=== PATIENT | male | born 1990 | race Caucasian/White ===

== ENCOUNTER 2017-12-03 03:41 | Emergency (ER) | payer BC, OTHER ==
[~2017-12-03] VITALS: Ht 180.3 cm; Wt 65.3 kg
[~2017-12-03 03:41] MED LIST: CYCL-1 PO
[2017-12-03 03:47] VITALS: BP 170/98
[2017-12-03] MEDS ORDERED: HYDR-3965 PO (03:51)
[2017-12-03] MEDS ORDERED: ONDA4TAB9 PO (03:51)
== END 2017-12-03 03:56 | disposition home or self-care (01) ==
LOC: ER 03:41
DX: K08.89 Other specified disorders of teeth and supporting structures (principal); R50.9 Fever, unspecified; F17.200 Nicotine dependence, unspecified, uncomplicated
CPT/HCPCS: 99283

== ENCOUNTER 2021-07-26 18:10 | Emergency (ER) | payer BC ==
[~2021-07-26] VITALS: Ht 180.3 cm; Wt 81.0 kg
[2021-07-26] MEDS ORDERED: gabapentin 400mg capsule PO STA (23:09)
[2021-07-26] MEDS ORDERED: chlordiazePOXIDE 25mg capsule PO ONE (23:10)
[2021-07-26] MEDS ORDERED: GABA-534 PO (23:13)
[2021-07-26] MEDS ORDERED: CHLO25CA10 PO (23:13)
[2021-07-26 23:36] VITALS: BP 125/87
== END 2021-07-26 23:38 | disposition home or self-care (01) ==
LOC: ER 18:10
DX: F10.10 Alcohol abuse, uncomplicated (principal); F17.200 Nicotine dependence, unspecified, uncomplicated; F12.90 Cannabis use, unspecified, uncomplicated; Z79.899 Other long term (current) drug therapy; Y90.9 Presence of alcohol in blood, level not specified
CPT/HCPCS: 99283

== ENCOUNTER 2021-11-02 18:32 | Emergency (ER) | payer BC ==
[~2021-11-02] VITALS: Ht 180.3 cm; Wt 72.7 kg
[~2021-11-02 18:32] MED LIST changes: +CHLO25CA10 PO; +GABA-534 PO
[2021-11-02 18:42] VITALS: BP 133/92
== END 2021-11-02 20:49 | disposition left against medical advice (07) ==
LOC: ER 18:33
DX: F10.10 Alcohol abuse, uncomplicated (principal); Z53.21 Procedure and treatment not carried out due to patient leaving prior to being seen by health care provider

== ENCOUNTER 2024-08-12 20:27 | Emergency (ER) | payer BC, OTHER ==
[~2024-08-12] VITALS: Ht 182.9 cm; Wt 81.8 kg
[~2024-08-12 20:27] MED LIST changes: -GABA-534 PO; +GABA-535 PO
--- NOTE | 2024-08-12 21:12 | RADIOLOGY REPORT ---
CLINICAL INDICATION: KNEE PAIN LEFT TECHNIQUE: DI KNEE, COMP 4 VW MIN Comparison: None FINDINGS/IMPRESSION: : There is no evidence of acute fracture or dislocation. Soft tissues are unremarkable.
--- NOTE | 2024-08-12 22:31 | Physician Documentation ---
History of Present Illness ~ Chief Complaint: Knee Pain Stated Complaint: LEFT LEG PAIN Time Seen by MD: 21:16 Primary Medical Doctor: harmony capellan Source: patient, RN/ HPI Patient is seen today with complaints of pain in his left leg and mostly his left knee stating he is concerned for blood clot because of swelling of the left leg and knee. Patient also admits to being a heavy drinker and wants some labs drawn. Patient states he tried to quit drinking about a week ago and he stopped cold turkey and states he had a seizure home. Patient does admit to history or seizures. Patient states he started drinking again. Patient has no other concern or complaint at this time denies any chest pain or shortness of breath or abdominal pain or nausea, vomiting, diarrhea. Medication Reconciliation Allergies: Coded Allergies: No Known Allergies (Unverified , 07/03/15) Scheduled Chlordiazepoxide Hcl (Librium), 25 MG PO DIRECTED Gabapentin (Gabapentin), 1 CAP PO DIRECTED Scheduled PRN Cyclobenzaprine* (Cyclobenzaprine*), 1 TABLET PO Q8H PRN for muscle spasms Past Medical History Past Medical History: No Pertinent History Past Surgical History: noncontributory Alcohol Use: Abuse Drug Use: marijuana Lives with: Spouse Lives In: Home Review of Systems Constitutional: Denies: chills, fever, weakness Eyes: Denies: pain, blurred vision ENT: Denies: ear pain, nose pain, throat pain, mouth pain Respiratory: Denies: cough, shortness of breath Cardiovascular: Denies: chest pain, palpitations Gastrointestinal: Denies: abdominal pain, nausea, vomiting Genitourinary: Denies: burning, dysuria Male Genitalia: Denies: penile discharge, testicular pain Neurological: Denies: headache, dizziness Musculoskeletal: Denies: pain, swelling Integumentary: Denies: rash, lesions Allergic/Immunologic: Denies: hives, itching Hematologic/Lymphatic: Denies: no symptoms reported Psychiatric: Denies: depression, anxiety Physical Exam Vital Signs: Temperature: 97.5, Heart Rate: 100, Respiratory Rate: 16, BP: 125/, Pulse Oximetry: 98, Weight: 81.820 Oxygen Flow Rate: 0 Physical Exam General: Awake and Alert, no acute distress. HEENT: Conjunctiva pink, Sclera clear, Mucus Membranes moist. Neck: Supple without masses and tenderness. Resp: Unlabored. Lungs clear to auscultation bilaterally. Heart: Regular Rate and rhythm, normal S1 and S2 without murmur, rub or gallop. Musculoskeletal: Patient on exam has no significant swelling of the left leg or right leg and no significant swelling in his left knee. Patient does have decreased range of motion due to pain especially in flexion of the left knee. Patient is neurovascularly intact distally. Motor function and strength are intact distally. Extremities: No cyanosis,clubbing or edema. Skin: Warm and Dry. Progress Results/Orders Results/Orders Orders - YONI MATSON R PAC D-Dimer (08/12/24 23:04) Completed Orders - YONI MATSON R PAC Cbc/Diff (08/12/24 22:30) CMP (08/12/24 22:30) Ketorolac Trometh 30mg/Ml Vial (Toradol (08/12/24 23:47) Vital Signs 08/12/24 20:43 Temp 97.5 Pulse 100 Resp 16 B/P (MAP) 125/91 Pulse Ox 98 O2 Flow Rate 0 Laboratory Tests Test 08/12/24 22:35 08/12/24 23:23 White Blood Count 6.9 Red Blood Count 5.13 Hemoglobin 16.0 Hematocrit 46.1 Mean Corpuscular Volume 89.9 Mean Corpuscular Hemoglobin 31.3 H Mean Corpuscular Hemoglobin Concent 34.8 Red Cell Distribution Width 13.2 Platelet Count 266 Mean Platelet Volume 7.4 Neutrophils (%) (Auto) 47.8 Lymphocytes (%) (Auto) 37.5 Monocytes (%) (Auto) 9.2 Eosinophils (%) (Auto) 4.1 Basophils (%) (Auto) 1.4 H Neutrophils # (Auto) 3.3 Lymphocytes # (Auto) 2.6 Monocytes # (Auto) 0.6 Eosinophils # (Auto) 0.3 Basophils # (Auto) 0.1 CBC Comment D-Dimer Comment Sodium Level 142 Potassium Level 3.6 Chloride Level 105 Carbon Dioxide Level 26.4 Anion Gap 11 Blood Urea Nitrogen 11 Creatinine 1.01 Estimated GFR/1.73 m2 85 BUN/Creatinine Ratio 10.9 Glucose Level 103 Calcium Level 8.5 Total Bilirubin 0.2 Aspartate Amino Transf (AST/SGOT) 30 Alanine Aminotransferase (ALT/SGPT) 39 Alkaline Phosphatase 85 Total Protein 7.2 Albumin 3.9 Globulin 3.3 Albumin/Globulin Ratio 1.2 Chemistry Comments EKG/XRAY/CT/US/VASC/MRI Bone/Soft Tissue X-Ray (Ext.) : Additional Comment X-ray of left knee shows no sign of acute fracture, bones in anatomic alignment, no soft tissue swelling. DIAGNOSTIC RADIOLOGY Patient: YONI COLLINS Medical Record: [id number] [facility] : 1990, Age: 33 Sex: Male Location: ER Patient Status: [facility] ER Service Date/Time: 08/12/242101 Ordering Physician: ALEXANDER MARRERO MD Exam: KNEE, COMP 4 VW MIN CLINICAL INDICATION: KNEE PAIN LEFT TECHNIQUE: DI KNEE, COMP 4 VW MIN Comparison: None FINDINGS/IMPRESSION: : There is no evidence of acute fracture or dislocation. Soft tissues are unremarkable. Electronically Signed by:CEDRIC DEJESUS MD Date & Time: 08/12/242108 Dictated by: CEDRIC DEJESUS MD Dictation date and time: 08/12/242108 Primary Care Provider: NO PRIMARY CARE PROVIDER cc: ALEXANDER MARRERO MD ~ Medical Decision Making Findings Patient is seen today with complaints of pain in his left leg and mostly his left knee stating he is concerned for blood clot because of swelling of the left leg and knee. Patient also admits to being a heavy drinker and wants some labs drawn. Patient states he tried to quit drinking about a week ago and he stopped cold turkey and states he had a seizure home. Patient does admit to history or seizures. Patient states he started drinking again. Patient has no other concern or complaint at this time denies any chest pain or shortness of breath or abdominal pain or nausea, vomiting, diarrhea. I did draw labs due to patient's extensive and heavy drinking history and his labs returned unremarkable. X-ray of the left knee was unremarkable. Patient will follow up with primary care regarding alcohol cessation. Strongly advise patient to never discontinue drinking of alcohol abruptly. Prescription of the Librium taper sent to patient pharmacy and patient will use as indicated and prescribed. Return to ED with any worsening, concerning or changing symptoms. Departure Disposition: HOME / SELF CARE / HOMELESS Impression: Primary Impression: Alcohol abuse Additional Impression: Knee pain Qualified Codes: M25.562 - Pain in left knee Condition: Stable Discharge Instructions: Acute Knee Pain, Adult Additional Instructions: I did draw labs due to patient's extensive and heavy drinking history and his labs returned unremarkable. X-ray of the left knee was unremarkable. Patient will follow up with primary care regarding alcohol cessation. Strongly advise patient to never discontinue drinking of alcohol abruptly. Prescription of the Librium taper sent to patient pharmacy and patient will use as indicated and prescribed. Return to ED with any worsening, concerning or changing symptoms. Referrals: NO PRIMARY CARE PROVIDER (PCP) Prescriptions Chlordiazepoxide Hcl (Librium) 25 Mg Capsule 2 CAP PO Q4H PRN for anxiety for 1 Day, #24 CAP 0 Refills Prov: YONI MATSON PAC 08/12/24 Signature Scribe Signature: no scribe Attestation: no scribe YONI MATSON PAC Aug 12, 2024 22:31
[2024-08-12 23:05] LABS: MEAN PLATELET VOLUME 7.4 FL (7.4-10.4); RED CELL DISTRIBUTION WIDTH 13.2 % (11.5-14.5)
[2024-08-12 23:22] LABS: CREATININE 1.01 MG/DL (0.60-1.10); TOTAL CARBON DIOXIDE 26.4 MMOL/L (24-32); eCRCL 113 ML/MIN; eGFR 85 ML/MIN
[2024-08-12] MEDS ORDERED: CHLO25CA10 PO (23:59)
[2024-08-13 00:11] VITALS: BP 128/88; PULSE 78; TEMP 97.8; O2SAT 99
[2024-08-13] MEDS: ketorolac trometh 30MG/ML vial 30 MG/ML VIAL IM STA (00:16)
[2024-08-13 00:18] VITALS: RESP 16
== END 2024-08-13 00:19 | disposition home or self-care (01) ==
LOC: ER 20:27
DX: M25.562 Pain in left knee (principal); F10.10 Alcohol abuse, uncomplicated; Y90.9 Presence of alcohol in blood, level not specified
CPT/HCPCS: 36415; 73564; 80053; 85025; 85379; 96372; 99284; J1885

== ENCOUNTER 2025-01-02 10:45 | Emergency (ER) | payer OTHER ==
[~2025-01-02] VITALS: Ht 182.9 cm; Wt 83.9 kg
--- NOTE | 2025-01-02 11:35 | RADIOLOGY REPORT ---
DI HAND, COMPLETE (3VW MIN), INDICATION: HAND PAIN TECHNICAL DATA: Frontal, oblique and lateral views were obtained of the right hand. COMPARISON: None FINDINGS: No fracture is identified. Joint spaces are maintained. Alignment is anatomic. Soft tissues are within normal limits. IMPRESSION: No acute fracture or dislocation of the right hand.
--- NOTE | 2025-01-02 13:06 | Physician Documentation ---
History of Present Illness ~ Chief Complaint: Hand pain Stated Complaint: RIGHT HAND SWELLING Time Seen by MD: 12:40 OK to notify your PCP?: Yes Primary Medical Doctor: harmony capellan Source: patient Mode of Arrival: POV Exam Limitations: no limitations HPI Presents with right hand pain and swelling. He reports that he was playing with his child yesterday and fell down and landed on his hand. He has not tried any medications for his pain prior to arrival. Medication Reconciliation Allergies: Coded Allergies: No Known Allergies (Unverified , 01/02/25) Scheduled Chlordiazepoxide Hcl (Librium), 25 MG PO DIRECTED Gabapentin (Gabapentin), 1 CAP PO DIRECTED Scheduled PRN Chlordiazepoxide Hcl (Librium), 2 CAP PO Q4H PRN for anxiety Cyclobenzaprine* (Cyclobenzaprine*), 1 TABLET PO Q8H PRN for muscle spasms Past Medical History Past Medical History: No Pertinent History Past Surgical History: noncontributory Alcohol Use: Abuse Drug Use: marijuana Lives with: Spouse Lives In: Home Review of Systems All Other Systems at this time: Reviewed and Negative Physical Exam Vital Signs: RN Vital Signs have been reviewed: Yes, Temperature: 97.6, Source: Temporal, Heart Rate: 80, Respiratory Rate: 16, BP: 154/87, Pulse Oximetry: 97, Weight: 83.900 Oxygen Flow Rate: 0 Pulse Oximetry Reflects: adequate oxygenation Physical Exam General: Alert, no distress. HEENT: No injection, moist mucous membranes. Neck: Full range of motion. Respiratory: No respiratory distress, equal chest rise and fall. Chest: No accessory muscle use. Cardiovascular: Regular rate and rhythm. Gastrointestinal: Nondistended. Extremities: Decreased range motion of right hand. Able to make a fist but it is painful to do. Edema over the knuckle of fingers 2 3 and 4 with tenderness. Good range motion of right wrist. Snuffbox nontender. Neurologic: Oriented x4. Psychiatric: Normal mood and affect. Skin: Normal color, warm and dry. Progress Results/Orders Reviewed/noted all lab results: Yes Results/Orders Vital Signs 01/02/25 11:03 Temp 97.6 Pulse 80 Resp 16 B/P (MAP) 154/87 Pulse Ox 97 O2 Flow Rate 0 EKG/XRAY/CT/US/VASC/MRI Bone/Soft Tissue X-Ray (Ext.) : Additional Comment Right hand x-ray as interpreted by me; no joint effusion, no acute fracture, no soft tissue swelling, no dislocation, or foreign body. Medical Decision Making Additional information obtaine: old records Findings Physical exam shows some swelling over the knuckle in hand of 2nd 3rd and 4th finger. There was some tenderness to palpation of the area but he is able to make a fist. We discussed that his x-rays do not show a fracture but he may benefit from a repeat x-ray in 7-10 days if he is still having symptoms to discover any occult fractures. Comfort we placed a Christopher wrap and sling to this hand. We discussed that he needs take off the sling multiple times a day and move his arm around to prevent getting a frozen elbow or shoulder. We discussed RICE therapy. He plans to take Tylenol when he gets home today. Declined while here. General Diff Dx:Considerations: Include: Contusion, Fracture, Hematoma, Neurovascular injury, Open fracture, Sprain Shoulder Diff Dx:Consideration: Include: Other Elbow Diff Dx:Considerations: Include: Other Wrist Diff Dx:Considerations: Include: Other Hand Diff Dx:Considerations: Include: Other Finger Diff Dx:Considerations: Include: Other Departure Disposition: 01 HOME / SELF CARE / HOMELESS Impression: Primary Impression: Sprain Additional Impression: Hand pain Condition: Stable Discharge Instructions: Sprains Additional Instructions: Please keep arm elevated above the level of the heart. Please take sling off multiple times a day to move her arm around to prevent frozen shoulder or elbow. As discussed she may benefit from repeat x-rays in 7-10 days if you are still having symptoms. Use Tylenol and/or ibuprofen at home for pain relief. Return back here for any new or worsening symptoms. Referrals: NO PRIMARY CARE PROVIDER (PCP) Education Educated: Patient Educated regarding: diagnosis, treatment, prognosis, need for follow up Additional Comment Medical Screen Exam This patient recieved a medical screening examination. After reviewing the individual's medical complaints with presenting symptoms and performing an appropriate physical examination, it was determined that no immediate life- threatening emergency medical condition is present. This individual is also not a women having contractions. Signature Scribe Signature: . Attestation: Scribed for Arnulfo Catherinep by Arnulfo Gee NP . 01/02/25 13:05 Parts of this note were created using [employer] voice recognition software program. While efforts were made to correct any mistakes made by this voice recognition software program, nonsensical phrases may remain in this note. In addition, there may be errors and syntax, grammar, content and spelling. ARNULFO [facility] Jan 02, 2025 13:06
[2025-01-02 13:20] VITALS: BP 148/79; PULSE 70; RESP 17; TEMP 97.6; O2SAT 99
== END 2025-01-02 13:17 | disposition home or self-care (01) ==
LOC: ER 10:46
DX: S63.8X1A Sprain of other part of right wrist and hand, initial encounter (principal); F12.90 Cannabis use, unspecified, uncomplicated; F10.10 Alcohol abuse, uncomplicated; Z79.899 Other long term (current) drug therapy; Y90.9 Presence of alcohol in blood, level not specified; W18.30XA Fall on same level, unspecified, initial encounter; Y93.89 Activity, other specified; Y92.89 Other specified places as the place of occurrence of the external cause; Y99.8 Other external cause status
CPT/HCPCS: 73130; 99283; A4565; A6449